=== PATIENT | female | born 1995 | race Caucasian/White ===

== ENCOUNTER 2021-01-14 07:14 | Inpatient (IN) | payer SELFPAY ==
[2021-01-14] MEDS ORDERED: Acetaminophen 500 MG Tab PO ONE (07:55)
--- NOTE | 2021-01-14 08:03 | EDM.PDOC ---
ED HPI GENERAL MEDICAL PROBLEM - General Chief Complaint: Upper Extremity Injury/Pain Stated Complaint: LEFT SHOULDER PAIN Time Seen by Provider: 01/14/21 07:50 Source of Information: Reports: Patient, RN. Denies: Old Records History Limitations: Reports: No Limitations - History of Present Illness INITIAL COMMENTS - FREE TEXT/NARRATIVE: 25 yo female recently moved to this area and had a fall 4 d ago during which she fell onto her L shoulder(tripped on a toy). Has pain since then. Not sleeping well. Took Aleve without much benefit. Is not aware of fever, but admits she lara sn't feel well. No specific complaints other than the shoulder pain. Here with her mother. Onset: Sudden Onset Date: 01/10/21 Duration: Day(s): (4), Constant Location: Reports: Upper Extremity, Left Quality: Reports: Ache Severity: Moderate Improves with: Reports: Rest Worsens with: Reports: Movement Context: Reports: Trauma Associated Symptoms: Reports: Malaise. 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) Left Shoulder Pain Score (Numeric/FACES): 6 - Related Data Allergies Allergy/AdvReac Type Severity Reaction Status Date / Time No Known Allergies Allergy Verified 01/14/21 07:35 Home Meds: Home Meds NK [No Known Home Meds] 01/14/21 [History] Past Medical History Respiratory History: Reports: Asthma Psychiatric History: Reports: ADHD, Depression Dermatologic History: Reports: Eczema - Infectious Disease History Infectious Disease History: Reports: None - Past Surgical History HEENT Surgical History: Reports: Tonsillectomy Social & Family History - Tobacco Use Tobacco Use Status *Q: Current Every Day Tobacco User Years of Tobacco use: 4 Packs/Tins Daily: 0.2 - Caffeine Use Caffeine Use: Reports: None - Recreational Drug Use Recreational Drug Use: No Review of Systems - Review of Systems Review Of Systems: See Below Constitutional: Reports: Other (malaise) Eyes: Reports: No Symptoms Ears: Reports: No Symptoms Nose: Reports: No Symptoms Mouth/Throat: Reports: No Symptoms Respiratory: Reports: No Symptoms Cardiovascular: Reports: No Symptoms GI/Abdominal: Reports: No Symptoms Genitourinary: Reports: No Symptoms Musculoskeletal: Reports: Shoulder Pain (left) Skin: Reports: No Symptoms Neurological: Reports: No Symptoms ED EXAM, GENERAL - Physical Exam Exam: See Below Exam Limited By: No Limitations General Appearance: Alert, WD/WN, Mild Distress Eye Exam: Bilateral Eye: Conjunctival Injection Ears: Normal External Exam, Normal Canal, Hearing Grossly Normal Ear Exam: Bilateral Ear: Auricle Normal, Canal Normal Nose: Normal Inspection, No Blood Throat/Mouth: Normal Inspection, Normal Lips, Normal Oropharynx, Normal Voice, No Airway Compromise Head: Atraumatic, Normocephalic Neck: Normal Inspection Respiratory/Chest: No Respiratory Distress, Lungs Clear, Normal Breath Sounds, No Accessory Muscle Use Cardiovascular: Regular Rate, Rhythm, No Edema GI/Abdominal: Normal Bowel Sounds, Soft, Non-Tender, No Distention Extremities: Normal Inspection, Limited Range of Motion (due to pain), Other (tender over the L humerus) Neurological: Alert, Oriented, CN II-XII Intact, Normal Cognition, No Motor/Sensory Deficits Psychiatric: Normal Affect, Normal Mood Skin Exam: Warm, Dry, Intact, Normal Color, No Rash Course - Vital Signs Last Recorded V/S: Last Vital Signs Temp 36.6 C 01/14/21 09:39 Pulse 122 H 01/14/21 10:47 Resp 16 01/14/21 10:47 BP 106/47 L 01/14/21 10:47 Pulse Ox 96 01/14/21 10:47 - Orders/Labs/Meds Orders: Active Orders 24 hr Category Date Time Status Cardiac Monitoring [RC] .As Directed Care 01/14/21 07:50 Active CULTURE URINE [RM] Stat Lab 01/14/21 08:32 Received Labs: Laboratory Tests 01/14/21 01/14/21 01/14/21 Range/Units 07:55 07:55 07:55 WBC 26.1 H (4.5-11.0) K/uL RBC 4.15 (3.30-5.50) M/uL Hgb 12.4 (12.0-15.0) g/dL Hct 36.9 (36.0-48.0) % MCV 89 (80-98) fL MCH 30 (27-31) pg MCHC 34 (32-36) % Plt Count 216 (150-400) K/uL Lactic Acid (0.7-2.1) mmol/L Urine Color Yellow (YELLOW) Urine Appearance Cloudy A (CLEAR) Urine pH 7.5 (5.0-8.0) Ur Specific [place] 1.020 (1.008-1.030) Urine Protein 30 H (NEGATIVE) mg/dL Urine Glucose (UA) Negative (NEGATIVE) mg/dL Urine Ketones Negative (NEGATIVE) mg/dL Urine Occult Blood Trace-lysed H (NEGATIVE) Urine Nitrite Negative (NEGATIVE) Urine Bilirubin Negative (NEGATIVE) Urine Urobilinogen 0.2 (0.2-1.0) EU/dL Ur Leukocyte Esterase Large H (NEGATIVE) Urine RBC 5-10 H (0-5) Urine WBC >100 H (0-5) Ur Epithelial Cells Many Amorphous Sediment Not seen Urine Bacteria Moderate Urine Mucus Not seen Urine HCG, Qual Negative Urine Opiates Screen (NEGATIVE) Ur Oxycodone Screen (NEGATIVE) Urine Methadone Screen (NEGATIVE) Ur Propoxyphene Screen (NEGATIVE) Ur Barbiturates Screen (NEGATIVE) Ur Tricyclics Screen (NEGATIVE) Ur Phencyclidine Scrn (NEGATIVE) Ur Amphetamine Screen (NEGATIVE) U Methamphetamines Scrn (NEGATIVE) Urine MDMA Screen (NEGATIVE) U Benzodiazepines Scrn (NEGATIVE) U Cocaine Metab Screen (NEGATIVE) U Marijuana (THC) Screen (NEGATIVE) SARS CoV-2 RNA Rapid HANNA 01/14/21 01/14/21 01/14/21 Range/Units 08:08 08:39 09:10 WBC (4.5-11.0) K/uL RBC (3.30-5.50) M/uL Hgb (12.0-15.0) g/dL Hct (36.0-48.0) % MCV (80-98) fL MCH (27-31) pg MCHC (32-36) % Plt Count (150-400) K/uL Lactic Acid 1.6 (0.7-2.1) mmol/L Urine Color (YELLOW) Urine Appearance (CLEAR) Urine pH (5.0-8.0) Ur Specific [place] (1.008-1.030) Urine Protein (NEGATIVE) mg/dL Urine Glucose (UA) (NEGATIVE) mg/dL Urine Ketones (NEGATIVE) mg/dL Urine Occult Blood (NEGATIVE) Urine Nitrite (NEGATIVE) Urine Bilirubin (NEGATIVE) Urine Urobilinogen (0.2-1.0) EU/dL Ur Leukocyte Esterase (NEGATIVE) Urine RBC (0-5) Urine WBC (0-5) Ur Epithelial Cells Amorphous Sediment Urine Bacteria Urine Mucus Urine HCG, Qual Urine Opiates Screen Negative (NEGATIVE) Ur Oxycodone Screen Negative (NEGATIVE) Urine Methadone Screen Negative (NEGATIVE) Ur Propoxyphene Screen Negative (NEGATIVE) Ur Barbiturates Screen Negative (NEGATIVE) Ur Tricyclics Screen Negative (NEGATIVE) Ur Phencyclidine Scrn Negative (NEGATIVE) Ur Amphetamine Screen Negative (NEGATIVE) U Methamphetamines Scrn Negative (NEGATIVE) Urine MDMA Screen Negative (NEGATIVE) U Benzodiazepines Scrn Negative (NEGATIVE) U Cocaine Metab Screen Negative (NEGATIVE) U Marijuana (THC) Screen Negative (NEGATIVE) SARS CoV-2 RNA Rapid HANNA Negative Meds: Medications Discontinued Medications Generic Name Dose Route Start Last Admin Trade Name Freq PRN Reason Stop Dose Admin Acetaminophen 1,000 mg 01/14/21 07:55 01/14/21 08:21 Acetaminophen 500 Mg Tab PO 01/14/21 07:56 1,000 mg ONETIME ONE Administration Ceftriaxone Sodium 1 gm 01/14/21 08:38 Ceftriaxone 1 Gm Vial IM 01/14/21 08:39 ONETIME ONE Lactated Ringer's 1,000 mls @ 1,000 mls/hr 01/14/21 08:39 01/14/21 10:07 Ringers, Lactated IV 01/14/21 09:38 1,000 mls/hr BOLUS ONE Administration Ceftriaxone Sodium 1 gm/ 50 mls @ 100 mls/hr 01/14/21 08:40 01/14/21 10:12 Sodium Chloride IV 01/14/21 09:09 100 mls/hr ONETIME ONE Administration Ketorolac Tromethamine 30 mg 01/14/21 10:11 01/14/21 10:17 Ketorolac 30 Mg/Ml Sdv IVPUSH 01/14/21 10:12 30 mg ONETIME ONE Administration - Radiology Interpretation Free Text/Narrative:: L humerus X-ray-no fx, ? AC sprain Departure - Departure Time of Disposition: 11:30 Disposition: Home, Self-Care 01 Condition: Fair Clinical Impression: Acromioclavicular sprain Qualifiers: Encounter type: initial encounter Laterality: left Qualified Code(s): S43.52XA - Sprain of left acromioclavicular joint, initial encounter UTI (urinary tract infection) Qualifiers: Urinary tract infection type: site unspecified Hematuria presence: without hematuria Qualified Code(s): N39.0 - Urinary tract infection, site not specified - Discharge Information *PRESCRIPTION DRUG MONITORING PROGRAM REVIEWED*: Not Applicable *COPY OF PRESCRIPTION DRUG MONITORING REPORT IN PATIENT CAT: Not Applicable Instructions: Urinary Tract Infection, Adult, [id number], Shoulder Pain, [id number] Referrals: PCP,None [Primary Care Provider] - Forms: ED Department Discharge Additional Instructions: Take cephalexin 500 mg every 6 hrs starting tomorrow morning. Drink lots of fluids. Wear your sling for support. Take acetaminophen 1000 every 6 hrs as needed for pain or fever control. Add Aleve 2 every 8-12 hrs for added relief. Recheck with a local doctor in the next 2-3 days to follow up on your culture. Return if worse. Sepsis Event Note (ED) - Evaluation Sepsis Screening Result: No Definite Risk - Focused Exam Vital Signs: Vital Signs Temp Pulse Resp BP Pulse Ox 01/14/21 10:47 122 H 16 106/47 L 96 01/14/21 09:39 36.6 C 129 H 16 93 L 01/14/21 07:56 38.2 C H 136 H 18 107/45 L 96 01/14/21 07:28 37.3 C 138 H 16 115/50 L 97 - My Orders Last 24 Hours: My Active Orders 01/14/21 07:50 Cardiac Monitoring [RC] .As Directed 01/14/21 08:32 CULTURE URINE [RM] Stat - Assessment/Plan Last 24 Hours: My Active Orders 01/14/21 07:50 Cardiac Monitoring [RC] .As Directed 01/14/21 08:32 CULTURE URINE [RM] Stat
[2021-01-14] MEDS ORDERED: cefTRIAXone 1 GM Vial IM ONE (08:38)
[2021-01-14] MEDS ORDERED: Lactated Ringers 1,000 ML IV ONE ×2 (08:39→11:48)
[2021-01-14] MEDS ORDERED: cefTRIAXone 1 GM in Sodium Chloride 0.9% 50 ML IV ONE (08:40)
[2021-01-14] MEDS ORDERED: Ketorolac 30 MG/ML SDV IVPUSH ONE (10:11)
--- NOTE | 2021-01-14 10:23 | CR ---
Humerus portable CLINICAL HISTORY: Fall FINDINGS: There is no acute fracture or dislocation in the left shoulder. Articular surfaces are smooth. Impression: Negative
[2021-01-14] MEDS ORDERED: oxyCODONE 5 MG Tab PO ONE (11:42)
[2021-01-14] MEDS ORDERED: HYDROmorphone 0.5 MG/0.5 ML Syringe IVPUSH ONE (13:31)
[2021-01-14] MEDS ORDERED: Ciprofloxacin in D5W 400 MG in Premix Bag 1 BAG IV ONE ×2 (13:43)
[2021-01-14] MEDS ORDERED: Lactated Ringers 1,000 ML IV SCH (13:45)
--- NOTE | 2021-01-14 15:07 | PCM.HP.2 ---
H&P History of Present Illness - General Date of Service: 01/14/21 Admit Problem/Dx: Admission Diagnosis/Problem Admission Diagnosis/Problem Shoulder pain Source of Information: Patient, Provider History Limitations: Reports: No Limitations - History of Present Illness Initial Comments - Free Text/Narative: CC: I fell four days ago HPI: Campbell presents to the emergency room with left shoulder pain. She reports that she tripped and fell about 4 days ago. She fell forward landing on her left hand with her arm outstretched. She did have some discomfort in the shoulder area at the time but it has grown progressively worse. She describes severe sharp and achy pain in the left shoulder that radiates down the arm and into the neck. The pain has steadily become worse to the point that it is quite severe and is interfering with her sleep. She has been taking acetaminophen and naproxen at home with only minimal improvement. Any sort of movement makes the pain quite a bit worse. No history of shoulder issues. Otherwise she had been feeling fine. She did not report any recent cough, abdominal pain, nausea, dysuria or urinary frequency. She is up in the area visiting relatives and does not live locally. Work-up in the emergency room revealed evidence for a urinary tract infection as well as a fever. Patient has received IV antibiotics and a culture was set up. Imaging of the shoulder was unremarkable but the patient continues to experience severe discomfort. Her blood pressure has gone down some during the course of the emergency room stay and may have some contribution from the narcotics. She will be admitted for management of urinary tract infection and shoulder pain. Left Shoulder Pain Score (Numeric/FACES): 7 - Related Data Allergies/Adverse Reactions: Allergies Allergy/AdvReac Type Severity Reaction Status Date / Time No Known Allergies Allergy Verified 01/14/21 07:35 Home Medications: Home Meds cephALEXin [Cephalexin] 500 mg PO Q6H #21 tablet 01/14/21 [Rx] Past Medical History Respiratory History: Reports: Asthma Psychiatric History: Reports: ADHD, Depression Dermatologic History: Reports: Eczema - Infectious Disease History Infectious Disease History: Reports: None - Past Surgical History HEENT Surgical History: Reports: Tonsillectomy Social & Family History - Family History Cardiac: Denies: PR - Tobacco Use Tobacco Use Status *Q: Current Every Day Tobacco User Years of Tobacco use: 4 Packs/Tins Daily: 0.2 - Caffeine Use Caffeine Use: Reports: None - Alcohol Use Alcohol Use History: No Alcohol Use in Last Twelve Months: No - Recreational Drug Use Recreational Drug Use: No H&P Review of Systems - Review of Systems: Review Of Systems: See Below Free Text/Narrative: A complete 12 point review of systems was obtained. Pertinent positives and negatives are noted in the history of present illness. All other systems were reviewed and were negative except as noted. Exam - Exam Exam: See Below - Vital Signs Vital Signs: Last Vital Signs Temp 36.6 C 01/14/21 13:50 Pulse 114 H 01/14/21 14:25 Resp 15 01/14/21 14:25 BP 81/39 L 01/14/21 14:25 Pulse Ox 96 01/14/21 14:25 Weight: 73.5 kg - Exam Quality Assessment: No: Supplemental Oxygen General: Alert, Oriented, Cooperative, Mild Distress, Lethargic HEENT: Conjunctiva Clear. No: Mucosa Moist & [place] (dry), Scleral Icterus Neck: Supple, Trachea Midline Lungs: Clear to Auscultation, Normal Respiratory Effort Cardiovascular: Regular Rhythm, Tachycardia. No: Systolic Murmur GI/Abdominal Exam: Normal Bowel Sounds, Soft, Non-Tender, No Distention Extremities: No Pedal Edema, Limited Range of Motion (left shoulder), Other (ttp over entire shoulder area even with very light touch. No step off of clavicle but ttp. ). No: Joint Swelling, Increased Warmth Peripheral Pulses: 2+: Dorsalis Pedis (L), Dorsalis Pedis (R) Skin: Warm, Dry Neuro Extensive - Mental Status: Alert, Oriented x3, Nl Response to Commands Neuro Extensive - Motor, Sensory, Reflexes: No: Dysarthria, Abnormal Motor Psychiatric: Alert, Normal Affect - Patient Data Lab Results Last 24 hrs: Laboratory Results - last 24 hr 01/14/21 01/14/21 01/14/21 Range/Units 07:55 07:55 07:55 WBC 26.1 H (4.5-11.0) K/uL RBC 4.15 (3.30-5.50) M/uL Hgb 12.4 (12.0-15.0) g/dL Hct 36.9 (36.0-48.0) % MCV 89 (80-98) fL MCH 30 (27-31) pg MCHC 34 (32-36) % Plt Count 216 (150-400) K/uL Sodium (140-148) mmol/L Potassium (3.6-5.2) mmol/L Chloride (100-108) mmol/L Carbon Dioxide (21-32) mmol/L Anion Gap (5.0-14.0) mmol/L BUN (7-18) mg/dL Creatinine (0.6-1.0) mg/dL Est Cr Clr Drug Dosing mL/min Estimated GFR (MDRD) (>60) Glucose (74-106) mg/dL Lactic Acid (0.7-2.1) mmol/L Calcium (8.5-10.1) mg/dL Urine Color Yellow (YELLOW) Urine Appearance Cloudy A (CLEAR) Urine pH 7.5 (5.0-8.0) Ur Specific [place] 1.020 (1.008-1.030) Urine Protein 30 H (NEGATIVE) mg/dL Urine Glucose (UA) Negative (NEGATIVE) mg/dL Urine Ketones Negative (NEGATIVE) mg/dL Urine Occult Blood Trace-lysed H (NEGATIVE) Urine Nitrite Negative (NEGATIVE) Urine Bilirubin Negative (NEGATIVE) Urine Urobilinogen 0.2 (0.2-1.0) EU/dL Ur Leukocyte Esterase Large H (NEGATIVE) Urine RBC 5-10 H (0-5) Urine WBC >100 H (0-5) Ur Epithelial Cells Many Amorphous Sediment Not seen Urine Bacteria Moderate Urine Mucus Not seen Urine HCG, Qual Negative Urine Opiates Screen (NEGATIVE) Ur Oxycodone Screen (NEGATIVE) Urine Methadone Screen (NEGATIVE) Ur Propoxyphene Screen (NEGATIVE) Ur Barbiturates Screen (NEGATIVE) Ur Tricyclics Screen (NEGATIVE) Ur Phencyclidine Scrn (NEGATIVE) Ur Amphetamine Screen (NEGATIVE) U Methamphetamines Scrn (NEGATIVE) Urine MDMA Screen (NEGATIVE) U Benzodiazepines Scrn (NEGATIVE) U Cocaine Metab Screen (NEGATIVE) U Marijuana (THC) Screen (NEGATIVE) SARS CoV-2 RNA Rapid HANNA 01/14/21 01/14/21 01/14/21 Range/Units 08:08 08:39 08:39 WBC (4.5-11.0) K/uL RBC (3.30-5.50) M/uL Hgb (12.0-15.0) g/dL Hct (36.0-48.0) % MCV (80-98) fL MCH (27-31) pg MCHC (32-36) % Plt Count (150-400) K/uL Sodium 134 L (140-148) mmol/L Potassium 4.4 (3.6-5.2) mmol/L Chloride 99 L (100-108) mmol/L Carbon Dioxide 22 (21-32) mmol/L Anion Gap 17.4 H (5.0-14.0) mmol/L BUN 12 (7-18) mg/dL Creatinine 0.9 (0.6-1.0) mg/dL Est Cr Clr Drug Dosing 97.23 mL/min Estimated GFR (MDRD) > 60 (>60) Glucose 92 (74-106) mg/dL Lactic Acid 1.6 (0.7-2.1) mmol/L Calcium 7.9 L (8.5-10.1) mg/dL Urine Color (YELLOW) Urine Appearance (CLEAR) Urine pH (5.0-8.0) Ur Specific [place] (1.008-1.030) Urine Protein (NEGATIVE) mg/dL Urine Glucose (UA) (NEGATIVE) mg/dL Urine Ketones (NEGATIVE) mg/dL Urine Occult Blood (NEGATIVE) Urine Nitrite (NEGATIVE) Urine Bilirubin (NEGATIVE) Urine Urobilinogen (0.2-1.0) EU/dL Ur Leukocyte Esterase (NEGATIVE) Urine RBC (0-5) Urine WBC (0-5) Ur Epithelial Cells Amorphous Sediment Urine Bacteria Urine Mucus Urine HCG, Qual Urine Opiates Screen (NEGATIVE) Ur Oxycodone Screen (NEGATIVE) Urine Methadone Screen (NEGATIVE) Ur Propoxyphene Screen (NEGATIVE) Ur Barbiturates Screen (NEGATIVE) Ur Tricyclics Screen (NEGATIVE) Ur Phencyclidine Scrn (NEGATIVE) Ur Amphetamine Screen (NEGATIVE) U Methamphetamines Scrn (NEGATIVE) Urine MDMA Screen (NEGATIVE) U Benzodiazepines Scrn (NEGATIVE) U Cocaine Metab Screen (NEGATIVE) U Marijuana (THC) Screen (NEGATIVE) SARS CoV-2 RNA Rapid HANNA Negative 01/14/21 Range/Units 09:10 WBC (4.5-11.0) K/uL RBC (3.30-5.50) M/uL Hgb (12.0-15.0) g/dL Hct (36.0-48.0) % MCV (80-98) fL MCH (27-31) pg MCHC (32-36) % Plt Count (150-400) K/uL Sodium (140-148) mmol/L Potassium (3.6-5.2) mmol/L Chloride (100-108) mmol/L Carbon Dioxide (21-32) mmol/L Anion Gap (5.0-14.0) mmol/L BUN (7-18) mg/dL Creatinine (0.6-1.0) mg/dL Est Cr Clr Drug Dosing mL/min Estimated GFR (MDRD) (>60) Glucose (74-106) mg/dL Lactic Acid (0.7-2.1) mmol/L Calcium (8.5-10.1) mg/dL Urine Color (YELLOW) Urine Appearance (CLEAR) Urine pH (5.0-8.0) Ur Specific [place] (1.008-1.030) Urine Protein (NEGATIVE) mg/dL Urine Glucose (UA) (NEGATIVE) mg/dL Urine Ketones (NEGATIVE) mg/dL Urine Occult Blood (NEGATIVE) Urine Nitrite (NEGATIVE) Urine Bilirubin (NEGATIVE) Urine Urobilinogen (0.2-1.0) EU/dL Ur Leukocyte Esterase (NEGATIVE) Urine RBC (0-5) Urine WBC (0-5) Ur Epithelial Cells Amorphous Sediment Urine Bacteria Urine Mucus Urine HCG, Qual Urine Opiates Screen Negative (NEGATIVE) Ur Oxycodone Screen Negative (NEGATIVE) Urine Methadone Screen Negative (NEGATIVE) Ur Propoxyphene Screen Negative (NEGATIVE) Ur Barbiturates Screen Negative (NEGATIVE) Ur Tricyclics Screen Negative (NEGATIVE) Ur Phencyclidine Scrn Negative (NEGATIVE) Ur Amphetamine Screen Negative (NEGATIVE) U Methamphetamines Scrn Negative (NEGATIVE) Urine MDMA Screen Negative (NEGATIVE) U Benzodiazepines Scrn Negative (NEGATIVE) U Cocaine Metab Screen Negative (NEGATIVE) U Marijuana (THC) Screen Negative (NEGATIVE) SARS CoV-2 RNA Rapid HANNA Result Diagrams: 01/14/21 07:55 01/14/21 08:39 Imaging Impressions Last 24 hrs: XR left shoulder/humer-images personally reviewed-no obvious fracture identified. Possible mild AC joint separation. Joint appears normal. Sepsis Event Note - Evaluation Sepsis Screening Result: Possible Sepsis Risk - Focused Exam Vital Signs: Vital Signs Temp Pulse Resp BP Pulse Ox 01/14/21 14:25 114 H 15 81/39 L 96 01/14/21 13:50 36.6 C 112 H 14 83/41 L 100 01/14/21 13:21 110 H 14 88/45 L 98 01/14/21 12:15 109 H 16 94/44 L 95 01/14/21 11:19 36.5 C 110 H 16 103/47 L 96 01/14/21 10:47 122 H 16 106/47 L 96 01/14/21 09:39 36.6 C 129 H 16 93 L 01/14/21 07:56 38.2 C H 136 H 18 107/45 L 96 01/14/21 07:28 37.3 C 138 H 16 115/50 L 97 *Q Meaningful Use (ADM) - VTE Risk Assess *Q Each Risk Factor Represents 1 Point: None Total Score 1 Point Risk Factors: 0 Each Risk Factor Represents 2 Points: None Total Score 2 Point Risk Factors: 0 Each Risk Factor Represents 3 Points: None Total Score 3 Point Risk Factors: 0 Each Risk Factor Represents 5 Points: None Total Score 5 Point Risk Factors: 0 Venous Thromboembolism Risk Factor Score *Q: 0 - Problem List (1) Left shoulder pain SNOMED Code(s): 69537315, 21149877 ICD Code: M25.512 - PAIN IN LEFT SHOULDER Status: Acute Current Visit: Yes Qualifiers: Chronicity: acute Qualified Code(s): M25.512 - Pain in left shoulder (2) Acute cystitis without hematuria SNOMED Code(s): 73947969 ICD Code: N30.00 - ACUTE CYSTITIS WITHOUT HEMATURIA Status: Acute Current Visit: Yes Problem List Initiated/Reviewed/Updated: Yes Orders Last 24hrs: Active Orders 24 hr Category Date Time Status Patient Status Manage Transfer [TRANSFER] Routine ADT 01/14/21 14:53 Ordered Cardiac Monitoring [RC] .As Directed Care 01/14/21 07:50 Active CULTURE URINE [RM] Stat Lab 01/14/21 08:32 Received Lactated Ringers [Ringers, Lactated] 1,000 ml Med 01/14/21 13:45 Active IV ASDIRECTED Resuscitation Status Routine Resus Stat 01/14/21 14:53 Ordered Medication Orders Lactated Ringer's (Ringers, Lactated) 1,000 mls @ 150 mls/hr IV ASDIRECTED KAYCEE Last Infusion: 01/14/21 13:55 Dose: 999 mls/hr Documented by: Admin: 01/14/21 13:37 Dose: 150 mls/hr Documented by: PREILOR Assessment/Plan Comment:: ASSESSMENT AND PLAN - Left shoulder pain-possibly rotator cuff strain/sprain. Possibly mild AC joint separation. Could be related to strain of a variety of muscles around the shoulder. Pain is severe and difficult to control at this time. -Symptomatic management of pain -Orthopedic consultation -MRI in the morning Urinary tract infection-patient did not have any symptoms. She has become hypotensive but I think this is related to the narcotics rather than sepsis. Lactic acid is normal. -Recheck lactic acid -Ceftriaxone -Urine culture Maintenance issues - -DVT prophylaxis-mechanical -GI prophylaxis-not indicated -Nutrition-regular -Hou catheter-not indicated CODE STATUS -full Admission justification -this patient will be admitted for observation to provide pain control and expedited work-up of her shoulder pain Disposition -I anticipate discharge home after the hospital stay Primary care physician -Jani Swartz M.D. - Mortality Measure Prognosis:: Good
[2021-01-14] MEDS ORDERED: Ibuprofen 600 MG Tab PO PRN (15:41)
[2021-01-14] MEDS ORDERED: Magnesium Hydroxide 400 MG/5 ML Susp 30 ML Cup PO PRN (15:41)
[2021-01-14] MEDS ORDERED: LORazepam 2 MG/ML SDV IVPUSH PRN (15:41)
[2021-01-14] MEDS ORDERED: Ondansetron 4 MG/2 ML SDV IV PRN (15:41)
[2021-01-14] MEDS ORDERED: oxyCODONE 5 MG Tab PO PRN (15:41)
[2021-01-14] MEDS ORDERED: Ondansetron 4 MG Tab.DIS PO PRN (15:41)
[2021-01-14] MEDS ORDERED: Hydrocortisone Sodium Succinate 100 MG/2 ML SDV IVPUSH ONE (17:58)
[2021-01-14] MEDS: HYDROmorphone 0.5 MG/0.5 ML Syringe IVPUSH PRN ×2 (18:40→23:20)
[2021-01-14] MEDS: Lactobacillus Rhamnosus GG (Probiotic) Cap PO SCH (20:12)
[2021-01-15] MEDS: HYDROmorphone 0.5 MG/0.5 ML Syringe IVPUSH PRN ×2 (03:42→07:32)
[2021-01-15] MEDS ORDERED: cefTRIAXone 1 GM in Sodium Chloride 0.9% 50 ML IV SCH (09:00)
[2021-01-15] MEDS: Lactobacillus Rhamnosus GG (Probiotic) Cap PO SCH ×2 (10:29→20:30)
--- NOTE | 2021-01-15 12:11 | PCM.PN ---
- General Info Date of Service: 01/15/21 Subjective Update: No acute issues overnight. We have not been able to obtain blood specimens partly because the patient has refused blood draws and partly because it has been very difficult when was allowed to be attempted. This morning she continues to report severe left shoulder pain. She does appear comfortable in the room. We had a difficult conversation this morning about pain control and have differences of opinion. I recommended that we try to use the oral medica tions because they last longer. She feels that IV medications are necessary at this time. After allowing some time to cool off we did discuss pain control again and she was agreeable to the oral pain medications. We did provide a one- time dose prior to her MRI and blood draw this afternoon. Her white count is up to 39,000. I am concerned about endocarditis but have not been able to obtain blood cultures as of yet. Functional Status: Reports: Tolerating Diet - Review of Systems General: Denies: Fever Musculoskeletal: Reports: Shoulder Pain - Patient Data Vitals - Most Recent: Last Vital Signs Temp 36.3 C 01/15/21 10:00 Pulse 68 01/15/21 10:00 Resp 18 01/15/21 10:00 BP 100/55 L 01/15/21 10:00 Pulse Ox 97 01/15/21 06:00 Weight - Most Recent: 73.5 kg Lab Results Last 24 Hours: Laboratory Results - last 24 hr 01/14/21 Range/Units 08:39 Sodium 134 L (140-148) mmol/L Potassium 4.4 (3.6-5.2) mmol/L Chloride 99 L (100-108) mmol/L Carbon Dioxide 22 (21-32) mmol/L Anion Gap 17.4 H (5.0-14.0) mmol/L BUN 12 (7-18) mg/dL Creatinine 0.9 (0.6-1.0) mg/dL Est Cr Clr Drug Dosing 97.23 mL/min Estimated GFR (MDRD) > 60 (>60) Glucose 92 (74-106) mg/dL Calcium 7.9 L (8.5-10.1) mg/dL Rm Results Last 24 Hours: Microbiology 01/14/21 08:32 Urine Culture - Preliminary Urine, Clean Catch Med Orders - Current: Current Medications Ceftriaxone Sodium 1 gm/ (Sodium Chloride) 50 mls @ 100 mls/hr IV Q24H KAYECE Last Admin: 01/15/21 10:29 Dose: 100 mls/hr Documented by: Ibuprofen (Ibuprofen 600 Mg Tab) 600 mg PO Q6H PRN PRN Reason: Pain/Fever Ketorolac Tromethamine (Ketorolac 30 Mg/Ml Sdv) 30 mg IVPUSH Q6H PRN PRN Reason: Pain (moderate 4-6) Stop: 01/19/21 16:31 Lactobacillus Rhamnosus (Lactobacillus Rhamnosus Gg (Probiotic) Cap) 1 cap PO BID [facility] Last Admin: 01/15/21 10:29 Dose: 1 cap Documented by: Lorazepam (Lorazepam 2 Mg/Ml Sdv) 0.5 mg IVPUSH Q4H PRN PRN Reason: Nausea/Vomiting Magnesium Hydroxide (Magnesium Hydroxide 400 Mg/5 Ml Susp 30 Ml Cup) 30 ml PO Q12H PRN PRN Reason: Constipation Ondansetron HCl (Ondansetron 4 Mg/2 Ml Sdv) 4 mg IV Q6H PRN PRN Reason: Nausea/Vomiting Ondansetron HCl (Ondansetron 4 Mg Tab.Dis) 4 mg PO Q6H PRN PRN Reason: Nausea able to take PO Oxycodone HCl (Oxycodone 5 Mg Tab) 5 - 10 mg PO Q4H PRN PRN Reason: Pain Senna/Docusate Sodium (Docusate Sodium/Sennosides 50-8.6 Mg Tab) 1 tab PO BID PRN PRN Reason: Constipation Discontinued Medications Acetaminophen (Acetaminophen 500 Mg Tab) 1,000 mg PO ONETIME ONE Stop: 01/14/21 07:56 Last Admin: 01/14/21 08:21 Dose: 1,000 mg Documented by: Hydrocortisone Sodium Succinate (Hydrocortisone Sodium Succinate 100 Mg/2 Ml Sdv) 100 mg IVPUSH ONETIME ONE Stop: 01/14/21 17:59 Last Admin: 01/14/21 18:12 Dose: 100 mg Documented by: Hydromorphone HCl (Hydromorphone 0.5 Mg/0.5 Ml Syringe) 0.5 mg IVPUSH ONETIME ONE Stop: 01/14/21 13:32 Last Admin: 01/14/21 13:37 Dose: 0.5 mg Documented by: Hydromorphone HCl (Hydromorphone 0.5 Mg/0.5 Ml Syringe) 0.5 mg IVPUSH Q2H PRN PRN Reason: Pain (severe 7-10) Last Admin: 01/15/21 07:32 Dose: 0.5 mg Documented by: Lactated Ringer's (Ringers, Lactated) 1,000 mls @ 1,000 mls/hr IV BOLUS ONE Stop: 01/14/21 09:38 Last Admin: 01/14/21 10:07 Dose: 1,000 mls/hr Documented by: Ceftriaxone Sodium 1 gm/ (Sodium Chloride) 50 mls @ 100 mls/hr IV ONETIME ONE Stop: 01/14/21 09:09 Last Admin: 01/14/21 10:12 Dose: 100 mls/hr Documented by: Lactated Ringer's (Ringers, Lactated) 1,000 mls @ 1,000 mls/hr IV BOLUS ONE Stop: 01/14/21 12:47 Last Admin: 01/14/21 12:14 Dose: 1,000 mls/hr Documented by: Lactated Ringer's (Ringers, Lactated) 1,000 mls @ 150 mls/hr IV ASDIRECTED [facility] Last Infusion: 01/14/21 13:55 Dose: 999 mls/hr Documented by: Ciprofloxacin/Dextrose 400 mg/ (Premix) 200 mls @ 200 mls/hr IV ONETIME ONE Stop: 01/14/21 14:42 Last Admin: 01/14/21 13:47 Dose: 200 mls/hr Documented by: Ketorolac Tromethamine (Ketorolac 30 Mg/Ml Sdv) 30 mg IVPUSH ONETIME ONE Stop: 01/14/21 10:12 Last Admin: 01/14/21 10:17 Dose: 30 mg Documented by: Oxycodone HCl (Oxycodone 5 Mg Tab) 5 mg PO ONETIME ONE Stop: 01/14/21 11:43 Last Admin: 01/14/21 12:18 Dose: 5 mg Documented by: - Exam Quality Assessment: No: Supplemental Oxygen General: Alert, Oriented, Cooperative, No Acute Distress HEENT: Pupils Equal Lungs: Normal Respiratory Effort Cardiovascular: Regular Rhythm, Tachycardia GI/Abdominal Exam: Soft, No Distention Extremities: No Pedal Edema Skin: Warm, Dry Psy/Mental Status: Alert, Normal Affect - Patient Data Lab Results Last 24 hrs: Laboratory Results - last 24 hr 01/14/21 Range/Units 08:39 Sodium 134 L (140-148) mmol/L Potassium 4.4 (3.6-5.2) mmol/L Chloride 99 L (100-108) mmol/L Carbon Dioxide 22 (21-32) mmol/L Anion Gap 17.4 H (5.0-14.0) mmol/L BUN 12 (7-18) mg/dL Creatinine 0.9 (0.6-1.0) mg/dL Est Cr Clr Drug Dosing 97.23 mL/min Estimated GFR (MDRD) > 60 (>60) Glucose 92 (74-106) mg/dL Calcium 7.9 L (8.5-10.1) mg/dL Result Diagrams: 01/15/21 12:35 01/15/21 12:50 Rm Results Last 24 hrs: Microbiology 01/14/21 08:32 Urine Culture - Preliminary Urine, Clean Catch Sepsis Event Note - Evaluation Sepsis Screening Result: No Definite Risk - Focused Exam Vital Signs: Vital Signs Temp Pulse Resp BP Pulse Ox 01/15/21 10:00 36.3 C 68 18 100/55 L 01/15/21 06:00 35.6 C L 60 15 90/52 L 97 01/15/21 04:00 12 95/53 L 97 01/15/21 02:00 12 87/46 L 96 - Problem List & Annotations (1) Left shoulder pain SNOMED Code(s): 49135281, 84644711 Code(s): M25.512 - PAIN IN LEFT SHOULDER Status: Acute Current Visit: Yes Qualifiers: Chronicity: acute Qualified Code(s): M25.512 - Pain in left shoulder (2) Acute cystitis without hematuria SNOMED Code(s): 80295113 Code(s): N30.00 - ACUTE CYSTITIS WITHOUT HEMATURIA Status: Acute Current Visit: Yes - Problem List Review Problem List Initiated/Reviewed/Updated: Yes - My Orders Last 24 Hours: My Active Orders 01/14/21 14:53 Resuscitation Status Routine 01/14/21 15:41 Docusate Sodium/Sennosides [Senna Plus] 1 tab PO BID PRN Ibuprofen [Motrin] 600 mg PO Q6H PRN LORazepam [Ativan] 0.5 mg IVPUSH Q4H PRN Magnesium Hydroxide [Milk of Magnesia] 30 ml PO Q12H PRN Ondansetron [Zofran ODT] 4 mg PO Q6H PRN Ondansetron [Zofran] 4 mg IV Q6H PRN oxyCODONE 5 - 10 mg PO Q4H PRN 01/14/21 15:41 Patient Status [ADT] Routine Antiembolic Devices [RC] .Routine Intake and Output [RC] QSHIFT Notify Provider Consults [RC] ASDIRECTED Notify Provider Vital Signs [RC] ASDIRECTED Oxygen Therapy [RC] PRN Up With Assistance [RC] ASDIRECTED Vital Signs [RC] Q4H Consult to Physician [CONS] Routine PT Evaluation and Treatment [CONS] Routine Sequential Compression Device [OM.PC] Routine 01/14/21 16:30 Ketorolac [Toradol] 30 mg IVPUSH Q6H PRN 01/14/21 Dinner Regular Diet [DIET] 01/14/21 21:00 Lactobacillus Rhamnosus GG [Culturelle] 1 cap PO BID 01/15/21 07:00 Shoulder wo Cont Lt [MR] Routine 01/15/21 09:00 cefTRIAXone [Rocephin] 1 gm Sodium Chloride 0.9% [Normal Saline] 50 ml IV Q24H 01/15/21 12:08 CBC WITH AUTO DIFF [HEME] Urgent CRP [C-REACTIVE PROTEIN] [CHEM] Routine CULTURE BLOOD [BC] Urgent CULTURE BLOOD [BC] Urgent HYDROmorphone [Dilaudid] 1 mg IVPUSH ONETIME ONE Blood Culture x2 Reflex Set [OM.PC] Urgent 01/15/21 13:00 Vancomycin 1 gm Sodium Chloride 0.9% [Normal Saline] 250 ml IV Q12H - Plan Plan:: ASSESSMENT AND PLAN - Left shoulder pain-possibly rotator cuff strain/sprain. Possibly mild AC joint separation. Could be related to strain of a variety of muscles around the shoulder. Pain is reported as severe though she appears comfortable. We have had 2 long discussions about pain control. -Symptomatic management of pain with oral pain medications -Orthopedic consultation -MRI this afternoon Suspicion for endocarditis-fever, high white count and suspicion for UTI but no symptoms. She does have a history of IV drug use. Procalcitonin is quite high. Blood cultures were finally able to be obtained this afternoon. -Antibiotic coverage with vancomycin -Follow-up blood cultures -Echo when able Urinary tract infection-patient did not have any symptoms. Culture growing a gram-positive cocci at this time. -Vancomycin as above -Follow-up urine culture History of IV drug use-patient reports that she has been clean for a couple of weeks and urine drug screen was negative. She is trying to get into a treatment program. Maintenance issues - -DVT prophylaxis-mechanical -GI prophylaxis-not indicated -Nutrition-regular CODE STATUS -full Admission justification -this patient will be admitted for observation to provide pain control and expedited work-up of her shoulder pain. If her blood cultures become positive she will be transitioned to inpatient status. Disposition -I anticipate discharge home after the hospital stay Primary care physician -Jani Swartz M.D.
[2021-01-15] MEDS ORDERED: HYDROmorphone 1 MG/ML Syringe IVPUSH ONE (12:30)
[2021-01-15] MEDS: Ketorolac 30 MG/ML SDV IVPUSH PRN ×2 (14:20→20:29)
--- NOTE | 2021-01-15 14:41 | PCM.SN.2 ---
- Free Text/Narrative Note: Orthopedics was consulted on this patient regarding her ongoing left shoulder pain. Patient had a fall on a left outstretched arm about 5 days ago, notes some discomfort in shoulder immediately after fall, but pain has been getting progressively worse. Pain radiates down arm as well as into neck. Pain is a constant ache, sharp pain with certain motions. OTC analgesics have been tried, minimal relief with acetaminophen and naproxen prior to ER visit. UTI diagnosed in ER; denied dysuria, hematuria, urgency, or frequency. Staff have been unable to obtain a thorough shoulder exam, as she is very tender to touch and hesitant to move arm. No reported swelling, redness, nor warmth to touch of shoulder joint. Patient shoulder xrays were reviewed, revealed no acute pathology. Although unlikely in someone patient's age, could potentially have some rotator cuff pathology from fall. Dr. Scott recommended MRI, which is currently pending. Today, it was revealed in patient's past medical history that she is an IV drug user. Most recent labs show a significant increase in white count, procalcitonin, and lactic acid. Upon discussion with Dr. Swartz, endocarditis is on the differential. With shoulder xrays revealing no acute pathology, and MRI pending, currently suspect left shoulder pain due to acute musculoskeletal strain. Upon discussion with Dr. Swartz, he will continue medical management of patient and reach out to orthopedics if MRI reveals anything suspicious or requiring orthopedic services.
[2021-01-15] MEDS: oxyCODONE 5 MG Tab PO PRN ×3 (17:28→23:43)
[2021-01-15] MEDS ORDERED: traZODone 50 MG Tab PO ONE (21:40)
[2021-01-16] MEDS: oxyCODONE 5 MG Tab PO PRN ×3 (03:35→10:11)
[2021-01-16] MEDS ORDERED: HYDROmorphone 1 MG/ML Syringe IVPUSH ONE ×2 (09:10→10:53)
[2021-01-16] MEDS: Lactobacillus Rhamnosus GG (Probiotic) Cap PO SCH (09:11)
--- NOTE | 2021-01-16 09:29 | PCM.DCSUM1 ---
Discharge Summary - Hospital Course Brief History: 25-year-old female with history of IV drug use who presented with left shoulder pain several days after falling at home. She was admitted to observation for management of urinary tract infection and shoulder pain. - Discharge Data Discharge Date: 01/16/21 Discharge Disposition: Home, Self-Care 01 Condition: Good - Referral to Home Health Primary Care Physician: PCP None - Discharge Diagnosis/Problem(s) (1) Left shoulder pain SNOMED Code(s): 26837399, 81475140 ICD Code: M25.512 - PAIN IN LEFT SHOULDER Status: Acute Current Visit: Yes Qualifiers: Chronicity: acute Qualified Code(s): M25.512 - Pain in left shoulder (2) Acute cystitis without hematuria SNOMED Code(s): 19485249 ICD Code: N30.00 - ACUTE CYSTITIS WITHOUT HEMATURIA Status: Acute Current Visit: Yes - Patient Summary/Data Consults: Consultations 01/14/21 15:41 Consult to Physician [CONS] Routine Consulting Provider: Valdez Scott Call Completed to Consulting Physician: Yes Reason for Consult: left shoulder pain 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 PT Reason for Consult: Strengthening Special Instructions: left shoulder This query below is only for informational purposes and is not editable. Labs Pending at D/C: Final results of urine culture which is growing a gram-positive cocci Final results of blood cultures which are growing gram-positive cocci Hospital Course: Campbell presented to the emergency room with left shoulder pain of 4 days duration. The pain had started after she fell forward with an outstretched arm. Work-up in the emergency room revealed a white blood cell count of 26,000 as well as a fever. Urine sample was suggestive of infection though the patient did not have any symptoms. X-ray imaging did not reveal any abnormalities of the shoulder. We had a difficult time achieving pain control in the emergency room and her blood pressure did start to go down after pain medication so she was admitted for further management. Initial antibiotic coverage included ceftriaxone and a dose of ciprofloxacin. After the time of admission further history became available that she did have a history of IV drug use. Her drug screen was clean at the time of admission. This did raise some concern for endocarditis. The morning after admission her urine culture was growing gram-positive cocci which raised further concern for hematogenous seeding especially in the absence of symptoms. Antibiotics were changed to vancomycin at this time. She continued to have difficulty with pain control with her left shoulder pain though her examination did not reveal redness, warmth or swelling. We were finally able to get additional blood samples the afternoon after admission. Her white blood cell count was up to 39,000. Her CRP was just shy of 15 and her procalcitonin was greater than 2. Overnight the second night her blood cultures returned positive with gram-positive cocci in the aerobic bottles. We were unable to get blood to recheck white blood cell count on the morning of discharge. At this point I am concerned the patient has endocarditis with her history of IV drug use. She has a septic left shoulder. Urine culture and blood cultures are growing gram-positive cocci. I did request transfer to a higher level of care for orthopedic and infectious disease consultation if necessary since these are not available here. The hospitalist team at [facility] graciously accepted her care and transfer. Once culture results are available, hopefully Monday, I will forward these onto the 1 call team. The shoulder x-ray as well as the shoulder MRI images will be pushed to [facility] via the PACS system. - Patient Instructions Activity: As Tolerated Driving: Do Not Drive - Discharge Plan *PRESCRIPTION DRUG MONITORING PROGRAM REVIEWED*: Not Applicable *COPY OF PRESCRIPTION DRUG MONITORING REPORT IN PATIENT CAT: Not Applicable Prescriptions/Med Rec: cephALEXin [Cephalexin] 500 mg PO Q6H #21 tablet Home Medications: Home Meds cephALEXin [Cephalexin] 500 mg PO Q6H #21 tablet 01/14/21 [Rx] Other Amb Orders: DME for Discharge [COMM] Location: None Selected Referrals: PCP,None [Primary Care Provider] - - Discharge Summary/Plan Comment DC Time >30 min.: Yes (50-transfer to acute hospital ) - Patient Data Vitals - Most Recent: Last Vital Signs Temp 36.3 C 01/16/21 03:00 Pulse 78 01/15/21 23:00 Resp 12 01/16/21 03:00 BP 106/59 L 01/15/21 23:00 Pulse Ox 97 01/15/21 06:00 Weight - Most Recent: 73.5 kg I&O - Last 24 hours: Intake & Output 0601/16/21 01/16/21 22:59 06:59 14:59 Intake Total 1400 500 Balance 1400 500 Lab Results - Last 24 hrs: Laboratory Results - last 24 hr 01/15/21 01/15/21 01/15/21 Range/Units 12:35 12:35 12:50 WBC 39.8 H* (4.5-11.0) K/uL RBC 3.74 (3.30-5.50) M/uL Hgb 10.9 L (12.0-15.0) g/dL Hct 33.3 L (36.0-48.0) % MCV 89 (80-98) fL MCH 29 (27-31) pg MCHC 33 (32-36) % Plt Count 255 (150-400) K/uL Neut % (Auto) 92.1 H (36-66) % Lymph % (Auto) 5.4 L (24-44) % [place] % (Auto) 2.3 (2-6) % Eos % (Auto) 0.1 L (2-4) % Baso % (Auto) 0.1 (0-1) % Sodium 140 (140-148) mmol/L Potassium 3.7 (3.6-5.2) mmol/L Chloride 103 (100-108) mmol/L Carbon Dioxide 26 (21-32) mmol/L Anion Gap 10.6 (5.0-14.0) mmol/L BUN 12 (7-18) mg/dL Creatinine 0.8 (0.6-1.0) mg/dL Est Cr Clr Drug Dosing 109.82 mL/min Estimated GFR (MDRD) > 60 (>60) Glucose 133 H (74-106) mg/dL Lactic Acid (0.4-2.0) mmol/L Calcium 8.3 L (8.5-10.1) mg/dL C-Reactive Protein 14.78 H (0.0-0.3) mg/dL Procalcitonin ng/mL 01/15/21 01/15/21 Range/Units 12:50 12:50 WBC (4.5-11.0) K/uL RBC (3.30-5.50) M/uL Hgb (12.0-15.0) g/dL Hct (36.0-48.0) % MCV (80-98) fL MCH (27-31) pg MCHC (32-36) % Plt Count (150-400) K/uL Neut % (Auto) (36-66) % Lymph % (Auto) (24-44) % [place] % (Auto) (2-6) % Eos % (Auto) (2-4) % Baso % (Auto) (0-1) % Sodium (140-148) mmol/L Potassium (3.6-5.2) mmol/L Chloride (100-108) mmol/L Carbon Dioxide (21-32) mmol/L Anion Gap (5.0-14.0) mmol/L BUN (7-18) mg/dL Creatinine (0.6-1.0) mg/dL Est Cr Clr Drug Dosing mL/min Estimated GFR (MDRD) (>60) Glucose (74-106) mg/dL Lactic Acid 3.8 H (0.4-2.0) mmol/L Calcium (8.5-10.1) mg/dL C-Reactive Protein (0.0-0.3) mg/dL Procalcitonin 2.93 H* ng/mL OMER Results - Last 24 hrs: Microbiology 01/14/21 08:32 Urine Culture - Preliminary Urine, Clean Catch 01/15/21 12:35 Aerobic Blood Culture - Preliminary Blood - Artery 01/15/21 12:35 Aerobic Blood Culture - Preliminary Blood - Artery Med Orders - Current: Current Medications Vancomycin HCl 1 gm/ Sodium (Chloride) 250 mls @ 150 mls/hr IV Q12H [facility] Last Admin: 01/16/21 02:04 Dose: Not Given Documented by: Ketorolac Tromethamine (Ketorolac 30 Mg/Ml Sdv) 30 mg IVPUSH Q6H PRN PRN Reason: Pain (moderate 4-6) Stop: 01/19/21 16:31 Last Admin: 01/15/21 20:29 Dose: 30 mg Documented by: Lactobacillus Rhamnosus (Lactobacillus Rhamnosus Gg (Probiotic) Cap) 1 cap PO BID [facility] Last Admin: 01/16/21 09:11 Dose: 1 cap Documented by: Lorazepam (Lorazepam 2 Mg/Ml Sdv) 0.5 mg IVPUSH Q4H PRN PRN Reason: Nausea/Vomiting Magnesium Hydroxide (Magnesium Hydroxide 400 Mg/5 Ml Susp 30 Ml Cup) 30 ml PO Q12H PRN PRN Reason: Constipation Ondansetron HCl (Ondansetron 4 Mg/2 Ml Sdv) 4 mg IV Q6H PRN PRN Reason: Nausea/Vomiting Ondansetron HCl (Ondansetron 4 Mg Tab.Dis) 4 mg PO Q6H PRN PRN Reason: Nausea able to take PO Oxycodone HCl (Oxycodone 5 Mg Tab) 10 mg PO Q3H PRN PRN Reason: Pain Last Admin: 01/16/21 07:32 Dose: 10 mg Documented by: Senna/Docusate Sodium (Docusate Sodium/Sennosides 50-8.6 Mg Tab) 1 tab PO BID PRN PRN Reason: Constipation Discontinued Medications Acetaminophen (Acetaminophen 500 Mg Tab) 1,000 mg PO ONETIME ONE Stop: 01/14/21 07:56 Last Admin: 01/14/21 08:21 Dose: 1,000 mg Documented by: Hydrocortisone Sodium Succinate (Hydrocortisone Sodium Succinate 100 Mg/2 Ml S dv) 100 mg IVPUSH ONETIME ONE Stop: 01/14/21 17:59 Last Admin: 01/14/21 18:12 Dose: 100 mg Documented by: Hydromorphone HCl (Hydromorphone 0.5 Mg/0.5 Ml Syringe) 0.5 mg IVPUSH ONETIME ONE Stop: 01/14/21 13:32 Last Admin: 01/14/21 13:37 Dose: 0.5 mg Documented by: Hydromorphone HCl (Hydromorphone 0.5 Mg/0.5 Ml Syringe) 0.5 mg IVPUSH Q2H PRN PRN Reason: Pain (severe 7-10) Last Admin: 01/15/21 07:32 Dose: 0.5 mg Documented by: Hydromorphone HCl (Hydromorphone 1 Mg/Ml Syringe) 1 mg IVPUSH ONETIME ONE Stop: 01/15/21 12:31 Last Admin: 01/15/21 12:33 Dose: 1 mg Documented by: Hydromorphone HCl (Hydromorphone 1 Mg/Ml Syringe) 1 mg IVPUSH ONETIME ONE Stop: 01/16/21 09:11 Last Admin: 01/16/21 09:16 Dose: 1 mg Documented by: Lactated Ringer's (Ringers, Lactated) 1,000 mls @ 1,000 mls/hr IV BOLUS ONE Stop: 01/14/21 09:38 Last Admin: 01/14/21 10:07 Dose: 1,000 mls/hr Documented by: Ceftriaxone Sodium 1 gm/ (Sodium Chloride) 50 mls @ 100 mls/hr IV ONETIME ONE Stop: 01/14/21 09:09 Last Admin: 01/14/21 10:12 Dose: 100 mls/hr Documented by: Lactated Ringer's (Ringers, Lactated) 1,000 mls @ 1,000 mls/hr IV BOLUS ONE Stop: 01/14/21 12:47 Last Admin: 01/14/21 12:14 Dose: 1,000 mls/hr Documented by: Lactated Ringer's (Ringers, Lactated) 1,000 mls @ 150 mls/hr IV ASDIRECTED [facility] Last Infusion: 01/14/21 13:55 Dose: 999 mls/hr Documented by: Ciprofloxacin/Dextrose 400 mg/ (Premix) 200 mls @ 200 mls/hr IV ONETIME ONE Stop: 01/14/21 14:42 Last Admin: 01/14/21 13:47 Dose: 200 mls/hr Documented by: Ceftriaxone Sodium 1 gm/ (Sodium Chloride) 50 mls @ 100 mls/hr IV Q24H [facility] Last Admin: 01/15/21 10:29 Dose: 100 mls/hr Documented by: Ibuprofen (Ibuprofen 600 Mg Tab) 600 mg PO Q6H PRN PRN Reason: Pain/Fever Ketorolac Tromethamine (Ketorolac 30 Mg/Ml Sdv) 30 mg IVPUSH ONETIME ONE Stop: 01/14/21 10:12 Last Admin: 01/14/21 10:17 Dose: 30 mg Documented by: Oxycodone HCl (Oxycodone 5 Mg Tab) 5 mg PO ONETIME ONE Stop: 01/14/21 11:43 Last Admin: 01/14/21 12:18 Dose: 5 mg Documented by: Oxycodone HCl (Oxycodone 5 Mg Tab) 5 - 10 mg PO Q4H PRN PRN Reason: Pain Last Admin: 01/15/21 14:15 Dose: 5 mg Documented by: Trazodone HCl (Trazodone 50 Mg Tab) 100 mg PO ONETIME ONE Stop: 01/15/21 21:41 Last Admin: 01/15/21 21:55 Dose: 100 mg Documented by: - Exam Quality Assessment: Denies: Supplemental Oxygen General: Reports: Alert, Oriented, Cooperative, No Acute Distress Lungs: Reports: Normal Respiratory Effort Cardiovascular: Reports: Regular Rate, Regular Rhythm GI/Abdominal Exam: Soft, No Distention Extremities: Other (No redness, warmth or swelling of the left shoulder. Patient is very hesitant to move the shoulder through any sort of range of motion.). No: Joint Swelling Skin: Reports: Warm, Dry, Other (Multiple scars on both arms from areas of previous abscess debridement.) Psy/Mental Status: Reports: Alert, Normal Affect
[2021-01-16] MEDS ORDERED: HYDROmorphone 0.5 MG/0.5 ML Syringe ONE (10:28)
--- NOTE | 2021-01-18 23:13 | CRLMR ---
Final Report: INDICATION: Severe pain at the left shoulder. TECHNIQUE: Axial PD and T2 fat-sat, coronal PD and T2 fat-sat and sagittal T1 and T2 fat- sat left shoulder sequences. FINDINGS: Rotator cuff: Shallow relatively well-defined articular tear of the rotator interval anterior margin of the supraspinatus with greatest anterior posterior 9 mm and medial to lateral extension also of 9-10 mm. Remainder of supraspinatus is intact. Intact infraspinatus and teres minor. Intact subscapularis. No muscle atrophy. Reactive edema along the deep margins of the muscles abutting the scapula. No muscle atrophy. - Acromioclavicular joint and coracoacromial arch: Curved type 2 acromion with patent acromiohumeral distance and normal thickness coracoacromial ligament. Normal AC joint. No clavicular dislocation or fracture. Normal subcoracoid interval. - Biceps labral complex: No labral tear. Intact biceps anchor. Appropriately located biceps tendon. Intact biceps shelly structures. Fluid and some presumed synovitis circumferentially around the tendon in the mildly distended biceps tendon sheath. - Glenohumeral joint: Anatomic alignment. Uniform cartilage. Large joint effusion without definitive synovitis or intra-articular body. No capsulitis. - Bones and soft tissues: Minor patchy and feathery edema in the deltoid inferior from the joint. No atrophy. No fracture is appreciated in the field of view. Multiple moderately large but benign morphology axillary lymph nodes incompletely visualized. IMPRESSION: 1. Large joint effusion. This may be posttraumatic. Clinical correlation for septic arthritis or inflammatory arthritis recommended and if there is any clinical concern, arthrocentesis recommended. 2. Shallow and not particularly acute appearing articular tear of the anterior distal supraspinatus to the rotator interval. 3. Reactive appearing edema along the scapula/deep margins of the rotator cuff muscles. No fracture in the field of view. Scapular incompletely visualized. This kind of edema pattern is sometimes seen in infectious or inflammatory arthritis. Dictated by Augustin Washington MD @ 01/15/2021 4:57:12 PM Signed by: Augustin Washington MD @01/15/2021 4:57:12 PM (Electronic Signature) MTDD
== END 2021-01-16 11:00 | disposition home or self-care (01) | DRG 549 ==
LOC: JP.ED 07:14 → JP.ICU 14:53
PROVIDERS: ADMIT Internal Medicine; ATTEND Internal Medicine
DX: M00.9 Pyogenic arthritis, unspecified (principal); I38 Endocarditis, valve unspecified; N30.00 Acute cystitis without hematuria; S46.912A Strain of unspecified muscle, fascia and tendon at shoulder and upper arm level, left arm, initial encounter; S43.52XA Sprain of left acromioclavicular joint, initial encounter; Z20.822 Contact with and (suspected) exposure to COVID-19; J45.909 Unspecified asthma, uncomplicated; F32.9 Major depressive disorder, single episode, unspecified; F90.9 Attention-deficit hyperactivity disorder, unspecified type; F17.200 Nicotine dependence, unspecified, uncomplicated; W01.198A Fall on same level from slipping, tripping and stumbling with subsequent striking against other object, initial encounter; B95.61 Methicillin susceptible Staphylococcus aureus infection as the cause of diseases classified elsewhere
CPT/HCPCS: 36415; 73060-26-LT; 73060-LT; 73221-LT; 80048; 80305-QW; 81001; 81025; 83605; 84145; 85025; 85027; 86140; 87040; 87077; 87086; 87088; 87186; 96365; 96367; 96375; 97110-GP; 97161-GP; 99284; 99284-25; A9270-GY; J0696; J0744; J1170; J1720; J1885; J3370; J7050; J7120; U0002